=== PATIENT | male | born 1980 | race Caucasian/White ===

== ENCOUNTER 2018-08-04 23:59 | Emergency (ER) | payer OTHER | END 2018-08-05 04:50 | disposition home or self-care (01) | LOC: E/R 08-05 04:50 | DX: K40.90 Unilateral inguinal hernia, without obstruction or gangrene, not specified as recurrent (principal); F17.210 Nicotine dependence, cigarettes, uncomplicated | CPT/HCPCS: 72192; 99284-25 ==

== ENCOUNTER 2019-01-04 12:39 | Emergency (ER) | payer OTHER | END 2019-01-04 16:10 | disposition home or self-care (01) | LOC: FTE 12:39 | DX: R06.02 Shortness of breath (principal); Z87.891 Personal history of nicotine dependence | CPT/HCPCS: 71046; 99283 ==